=== PATIENT | female | born 1960 | race Caucasian/White ===

== ENCOUNTER 2020-04-12 10:30 | Outpatient (RCR) | payer BC ==
[~2020-04-12] VITALS: Ht 157.5 cm; Wt 103.4 kg
[2020-04-15] MEDS ORDERED: VORT20TA PO (12:18)
[2020-04-15] MEDS ORDERED: AMLO-251 PO (12:18)
[2020-04-15] MEDS ORDERED: SUCR1TAB PO (12:18)
[2020-04-15] MEDS ORDERED: BUDE10.7 IH (12:18)
[2020-04-15] MEDS ORDERED: CELE100C84 PO (12:18)
[2020-04-15] MEDS ORDERED: LEVO88TA54 PO (12:18)
[2020-04-15] MEDS ORDERED: ALB0.5V INH (12:18)
[2020-04-15] MEDS ORDERED: ALPR1TAB7 PO (12:18)
[2020-04-15] MEDS ORDERED: PRAM0.5T2 PO (12:18)
[2020-04-15] MEDS ORDERED: RT-ALBUINH IH (12:18)
[2020-04-15] MEDS ORDERED: ONDA-105 PO (12:18)
[2020-04-15] MEDS ORDERED: PANT40TA52 PO (12:18)
[2020-04-15] MEDS ORDERED: FAMO20TA5 PO (12:18)
[2020-04-15] MEDS ORDERED: NEBI5TAB8 PO (12:18)
[2020-04-15] MEDS ORDERED: CARI350T27 PO (12:18)
[2020-04-15] MEDS ORDERED: LISD50CA PO (12:18)
[2020-04-15] MEDS ORDERED: CHOL239. PO (12:18)
== END 2020-04-15 12:19 | disposition home or self-care (01) ==
LOC: PREOP 10:30
PROVIDERS: ATTEND Surgery
DX: Z01.818 Encounter for other preprocedural examination (principal)

== ENCOUNTER 2020-04-17 11:15 | Day surgery (SDC) | payer BC ==
[~2020-04-17] VITALS: Ht 157.5 cm; Wt 103.4 kg
[2020-04-17] VITALS (16 sets, daily range): BP systolic 106–162; BP diastolic 55–82
[~2020-04-17 11:15] MED LIST: ALB0.5V INH; ALPR1TAB7 PO; AMLO-251 PO; BUDE10.7 IH; CARI350T27 PO; CELE100C84 PO; CHOL239. PO; FAMO20TA5 PO; LEVO88TA54 PO; LISD50CA PO; NEBI5TAB8 PO; ONDA-105 PO; PANT40TA52 PO; PRAM0.5T2 PO; RT-ALBUINH IH; SUCR1TAB PO; VORT20TA PO
[2020-04-17] MEDS ORDERED: NS IV 500 ML 500 ML ONE (11:24)
[2020-04-17] MEDS ORDERED: NS IV 500 ML 500 ML IV PRN (11:25)
[2020-04-17] MEDS ORDERED: HURRICAINE EXT TUBE (BENZOCAINE) XX PRN (11:30)
[2020-04-17] MEDS ORDERED: MIDAZOLAM 5 MG/5 ML (VERSED) VIAL IV ONE (11:30)
[2020-04-17] MEDS ORDERED: fentaNYL INJECTION 100 MCG/2 ML AMP IVP ONE (11:30)
[2020-04-17] MEDS ORDERED: LIDOCAINE JELLY 2% 6 ML SYRINGE MM PRN (11:30)
--- NOTE | 2020-04-17 11:30 | Conscious Sedation/ASA ---
Conscious Sedation Pre-Proced Time 11:20 ASA Score 2 For ASA 3 and 4: Consider anesthesia and medical clearance. Also, for patients with a history of failed moderate sedation consider anesthesia. Airway Lungs Heart ASA score ASA 1: a normal healthy patient ASA 2: a patient with a mild systemic disease (mid diabetes, controlled hypertension, obesity ASA 3: a patient with a severe systemic disease that limits activity (angina, COPD, prior Myocardial infarction) ASA 4: a patient with an incapacitating disease that is a constant threat to life (CHF, renal failure) ASA 5: a moribund patient not expected to survive 24 hrs. (ruptured aneurysm) ASA 6: a declared brain- patient whose organs are being harvested. For emergent operations, add the letter E after the classification Mallampati Classification Grade 2 Sedation Plan Analgesia, Amnesia, Plan communicated to team members, Discussed options with patient/fam, Discussed risks with patient/fam The patient is an appropriate candidate to undergo the planned procedure, sedation, and anesthesia. The patient immediately re-assessed prior to indication. GERONIMO ONEAL MD Apr 17, 2020 11:30
--- NOTE | 2020-04-17 11:31 | Progress Note-Pre Operative ---
Pre-Operative Progress Note H&P Reviewed The H&P was reviewed, patient examined and no changes noted. Date Seen by Provider: Apr 17, 2020 Time Seen by Provider: 11:20 Date H&P Reviewed: Apr 17, 2020 Time H&P Reviewed: 11:20 Pre-Operative Diagnosis: GERD, dys GERONIMO ONEAL MD Apr 17, 2020 11:31
--- NOTE | 2020-04-17 11:32 | Discharge Inst-Surgical ---
D/C Lap Instructions-KIMMY Follow Up Activity as tolerated High Fiber Diet 25g or more per day Avoid Alcohol, Caffeine, Spicy [place] and Acid foods. Drink 64 fluid oz or more of fluids per day. Symptoms to Report: Fever over 101 degree F, Nausea/Vomiting If any problems/questions: Contact your physician or go to Emergency Room GERONIMO ONEAL MD Apr 17, 2020 11:32
[2020-04-17] MEDS ORDERED: HYDROcodone/APAP 5 MG/325 MG (LORTAB) TAB PO PRN (11:45)
[2020-04-17] MEDS ORDERED: ONDANSETRON 4 MG/2 ML (SDV) Z0FRAN IVP PRN (11:45)
[2020-04-17] MEDS ORDERED: morphine INJ 10 MG/ML 1ML (SYR OR VIAL) IVP PRN ×2 (11:45)
[2020-04-17] MEDS ORDERED: ACETAMINOPHEN 325 MG TABLET PO PRN (11:45)
[2020-04-17] MEDS ORDERED: LIDOCAINE JELLY 2% 6 ML SYRINGE ONE (12:58)
[2020-04-17] MEDS ORDERED: MIDAZOLAM 5 MG/5 ML (VERSED) VIAL ONE ×2 (12:58)
[2020-04-17] MEDS ORDERED: HURRICAINE EXT TUBE (BENZOCAINE) ONE (12:58)
[2020-04-17] MEDS ORDERED: fentaNYL INJECTION 100 MCG/2 ML AMP ONE (12:58)
--- NOTE | 2020-04-17 13:38 | Progress Note-Post Operative ---
Post-Operative Progess Note Surgeon (s)/Veneer Jointer Operator (s) Surgeon GERONIMO ONEAL MD Veneer Jointer Operator: none Pre-Operative Diagnosis GERD, dys Post-Operative Diagnosis reflux eosphagitis(stage 2), mild distal esoph stricture, moderate gastritis. Procedure & Operative Findings Date of Procedure 04/17/20 Procedure Performed/Findings EGD with bx and balloon dilatation. Anesthesia Type cs Estimated Blood Loss Estimated blood loss (mL): minimal Specimens/Packing Specimens Removed ge lauraxn, GERONIMO Ghosh MD Apr 17, 2020 13:38
--- NOTE | 2020-04-17 14:07 | Progress Note-Post Operative ---
Post-Operative Progess Note Surgeon (s)/Technical Developer (s) Surgeon GERONIMO ONEAL MD Technical Developer: none Pre-Operative Diagnosis GERD, dys Post-Operative Diagnosis reflux esophagitis(stage 3), moderate HH(3cm), mild gastro-jejunal stricture, no distal obstructions. Procedure & Operative Findings Date of Procedure 04/17/20 Procedure Performed/Findings EGD with bx and balloon dilation Anesthesia Type cs Estimated Blood Loss Estimated blood loss (mL): minimal Specimens/Packing Specimens Removed stomach, ge jxn GERONIMO ONEAL MD Apr 17, 2020 14:07
--- NOTE | 2020-04-23 18:43 | OPERATIVE REPORT ---
DATE OF SERVICE: 04/17/2020 ATTENDING OFFICE INSPECTOR: JEROD Calderon. PREOPERATIVE DIAGNOSIS: Persistent reflux and regurgitation, status post mini gastric bypass. POSTOPERATIVE DIAGNOSES: Reflux esophagitis stage III, moderate-sized Hill grade III hiatal hernia 3 cm in size. The gastrojejunal anastomosis appeared normal; however, we did balloon dilate to 20 mm with only mild to moderate resistance. The afferent and efferent limbs were widely patent. PROCEDURE: EGD with biopsy and balloon dilatation. SURGEON: Geronimo Oneal MD ANESTHESIA: Conscious sedation. ESTIMATED BLOOD LOSS: Minimal. FINDINGS: Same as postoperative diagnoses. DISPOSITION: The patient tolerated the procedure well. INDICATIONS: The patient is a 60-year-old female who is status post mini gastric bypass in 2010. She states that her starting weight was around 400 pounds and she did lose a significant amount of weight, approximately 220 pounds. She states that over time, she has developed significant heartburn, reflux and regurgitation with constant epigastric burning sensation. She states that she has taken a number of medications and was on Protonix and Pepcid as well as Carafate, which did not give her any symptomatic relief. On 04/17/2020, she underwent an EGD and she was found to have a reflux esophagitis stage III with a small ulceration just above the GE junction. The GE junction was also intrathoracic consistent with a hiatal hernia. Biopsy was taken of the GE junction with forceps with visualization of good hemostasis. DESCRIPTION OF PROCEDURE: The endoscope was then advanced into the gastric pouch where a moderate gastritis was identified. The endoscope was then retroflexed, visualizing a moderate-sized hiatal hernia, 3 cm in size. This appeared to be a type 3 hiatal hernia and a Hill grade III. The gastrojejunal anastomosis appeared normal; however, it was hard to tell and we proceeded with intubation of the efferent and afferent limb, which were patent. A balloon was then placed into the efferent limb and pulled back to the area of the anastomosis. We then proceeded to 2, 4 and 6 atmospheres of pressure or 20 mm in luminal diameter with mild to moderate resistance and left this in place for 60 seconds. The balloon was then desufflated and removed with visualization of good hemostasis as well as no mucosal tears. The endoscope was then slowly withdrawn while taking a second look and suctioning of residual air with no additional findings. The patient tolerated the procedure well. We feel that the majority of her symptoms are related to her significant size hiatal hernia. We will recommend continued minimal medical management for now with small and more frequent meals, avoidance of eating at night as well as avoidance of caffeinated beverages, spicy, greasy and acidic foods. We will also proceed with a trial of Protonix 40 mg daily as well as omeprazole 40 mg daily, in a b.i.d. fashion. We will also start Carafate 1 gram q.i.d. for the next 2 weeks. If she proceeds with maximal medical therapy and continues to be symptomatic, she may need revisional surgery including a hiatal hernia repair as well as conversion to a Kassie-en-Y gastric bypass for which we would refer her to a specialty center. Job ID: [id number] DocumentID: [id number] Dictated Date: 04/23/2020 17:55:44 Literacy Tutor Date: 04/23/2020 18:42:39 Dictated By: GERONIMO ONEAL MD
== END 2020-04-17 15:00 | disposition home or self-care (01) ==
LOC: ENDO 11:15
PROVIDERS: ATTEND Surgery
DX: K21.00 Gastro-esophageal reflux disease with esophagitis, without bleeding (principal); K44.9 Diaphragmatic hernia without obstruction or gangrene; F41.9 Anxiety disorder, unspecified; F32.9 Major depressive disorder, single episode, unspecified; J18.9 Pneumonia, unspecified organism; Z79.899 Other long term (current) drug therapy; Z88.5 Allergy status to narcotic agent; Z90.49 Acquired absence of other specified parts of digestive tract; Z80.1 Family history of malignant neoplasm of trachea, bronchus and lung; Z82.49 Family history of ischemic heart disease and other diseases of the circulatory system
CPT/HCPCS: 88305